=== PATIENT | female | born 1960 | race Caucasian/White ===

== ENCOUNTER 2017-06-11 23:08 | Emergency (ER) | payer OTHER ==
[~2017-06-11] VITALS: Ht 162.6 cm; Wt 45.0 kg
[~2017-06-11 23:08] MED LIST: ALPRAZOLAM0.25 MG PO; ALPRAZOLAM0.5 MG PO; AMANTADINE100 MG PO; ARICEPT10 MG PO; ATIVAN INTE2 MG/1 ML PO; ATIVAN0.5 MG PO; BUSPAR10 MG PO; BUSPAR15 MG PO; CLONAZEPAM0.5 MG PO; COLACE100 MG PO; DIVALPROEX SOD250 M1 PO; DIVALPROEX SOD250 MG PO; DOCUSATE SODIU100 MG PO; DONEPEZIL HCL10 MG PO; FAMOTIDINE20 MG PO; FETZIMA40 MG PO; FLUOXETINE HCL20 MG PO; GABAPENTIN100 MG PO; GABAPENTIN400 MG PO; HALDOL5 MG PO; HYDROXYZINE HCL10 M1 NG; HYDROXYZINE PAM25 MG PO; KEFLEX500 MG PO; LEVOTHYROXINE50 MCG PO; LEVOTHYROXINE75 MCG PO; LEXAPRO20 MG PO; LITHIUM CARBON300 M1 PO; LITHIUM CARBON300 M2 PO; LORAZEPAM0.5 MG PO; LORAZEPAM1 MG PO; MELOXICAM15 MG PO; MEMANTINE HCL5 MG PO; MILK OF MAGNESI10 ML PO; NAMENDA10 MG PO; PILOCARPINE HCL5 MG PO; PROZAC40 MG PO; PYRIDIUM100 MG PO; QUETIAPINE FUM100 MG PO; QUETIAPINE FUM200 MG PO; QUETIAPINE FUM300 MG PO; QUETIAPINE FUMA25 MG PO; QUETIAPINE FUMA50 MG PO; RANITIDINE HCL150 MG PO; SEROQUEL12.5 MG PO; SEROQUEL200 MG PO; SEROQUEL50 MG PO; SYNTHROID50 MCG PO; SYNTHROID75 MCG PO; TRANYLCYPROMINE10 MG PO; TYLENOL EXTRA500 MG PO; TYLENOL REGULA325 MG PO; ZANTAC150 MG PO; lithium
[2017-06-12 01:33] VITALS: BP 98/70
== END 2017-06-12 01:41 ==
LOC: EME → EDBD 23:08 → EME 23:08
DX: F03.90 Unspecified dementia, unspecified severity, without behavioral disturbance, psychotic disturbance, mood disturbance, and anxiety (principal); Z04.8 Encounter for examination and observation for other specified reasons; M19.91 Primary osteoarthritis, unspecified site; F32.9 Major depressive disorder, single episode, unspecified; F41.9 Anxiety disorder, unspecified; F25.9 Schizoaffective disorder, unspecified
CPT/HCPCS: 99281; 99285

== ENCOUNTER 2017-07-22 07:05 | Emergency (ER) | payer OTHER ==
[~2017-07-22] VITALS: Ht 157.5 cm; Wt 41.8 kg
[2017-07-22 10:39] VITALS: BP 122/73
== END 2017-07-22 10:44 ==
LOC: EME 07:05
DX: S09.90XA Unspecified injury of head, initial encounter (principal); S40.011A Contusion of right shoulder, initial encounter; S80.01XA Contusion of right knee, initial encounter; W19.XXXA Unspecified fall, initial encounter; Y92.129 Unspecified place in nursing home as the place of occurrence of the external cause; F03.90 Unspecified dementia, unspecified severity, without behavioral disturbance, psychotic disturbance, mood disturbance, and anxiety; F32.9 Major depressive disorder, single episode, unspecified; F41.9 Anxiety disorder, unspecified; F25.9 Schizoaffective disorder, unspecified
CPT/HCPCS: 70450; 73030; 73502; 73560; 99281; 99284